=== PATIENT | female | born 1965 | race Caucasian/White ===

== ENCOUNTER 2021-09-24 14:43 | Outpatient (CLI) | payer OTHER | END 2021-09-24 14:44 | disposition home or self-care (01) | LOC: BICMAMMO 14:43 | PROVIDERS: ATTEND Family Medicine | DX: Z12.31 Encounter for screening mammogram for malignant neoplasm of breast (principal) | CPT/HCPCS: 77063; 77067 ==

== ENCOUNTER 2023-09-11 07:33 | Outpatient (CLI) | payer OTHER | END 2023-09-11 07:34 | disposition home or self-care (01) | LOC: ULT 07:33 | PROVIDERS: ATTEND Internal Medicine | DX: R79.89 Other specified abnormal findings of blood chemistry (principal); Z90.49 Acquired absence of other specified parts of digestive tract | CPT/HCPCS: 76700 ==

== ENCOUNTER 2023-09-12 09:26 | Day surgery (SDC) | payer OTHER ==
[2023-09-12] MEDS ORDERED: diphenhydrAMINE 25 MG CAP ONE (10:41)
[2023-09-12] MEDS ORDERED: Acetaminophen 500 MG TAB ONE (10:41)
[2023-09-12] MEDS: Acetaminophen 500 MG TAB PO SCH (10:43)
[2023-09-12] MEDS: diphenhydrAMINE 25 MG CAP PO SCH (10:43)
[2023-09-12 12:14] VITALS: BP 116/58; TEMP 97.8
== END 2023-09-12 11:58 | disposition home or self-care (01) ==
LOC: ONC/OP 09:26
PROVIDERS: ATTEND Internal Medicine
DX: D64.9 Anemia, unspecified (principal); D69.6 Thrombocytopenia, unspecified
CPT/HCPCS: 36416; 36430; 86850; 86900; 86901; P9035

== ENCOUNTER 2023-10-13 11:28 | Day surgery (SDC) | payer OTHER ==
[2023-10-13] MEDS: Acetaminophen 500 MG TAB ONE (12:37)
[2023-10-13 13:35] VITALS: BP 109/60; TEMP 97.9
== END 2023-10-13 14:09 | disposition home or self-care (01) ==
LOC: ONC/OP 11:28
PROVIDERS: ATTEND Internal Medicine
DX: D64.9 Anemia, unspecified (principal); D69.6 Thrombocytopenia, unspecified
CPT/HCPCS: 36430; 86900; 86901; P9035